=== PATIENT | female | born 1945 | race Caucasian/White ===

== ENCOUNTER → 2016-10-16 | Outpatient (CLI) | payer MEDICARE, OTHER ==
[~2016-10-16] MED LIST: ASPIRIN LO-DOSE81 MG PO; CALCIUM 600 +1 EAC3 PO; LEVOTHROID(SYN75 MCG PO; SIMVASTATIN20 MG PO; THERA-VITE W/ B1 TAB PO; TOPROL XL100 MG PO
--- NOTE | ~2016-10-16 | ENPV ---
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 Bilateral vertebral arteries are antegrade. Procedure Type of Study: Cerebral:Carotid, Carotid Doppler Bilateral. Indications for Study:Carotid Bruit. Appropriate Use Criteria:7 Patient Status:Routine. Study Location:Vascular Lab. Technical Quality:Adequate visualization. Velocities are measured in cm/s ; Diameters are measured in cm Carotid Right Measurements Carotid Left Measurements + +--------+--------+ + + + +--------+ --------+ + + !Location !PSV !EDV !Angle !%Stenosis ! !Location !PSV ! EDV !Angle !%Stenosis ! + +--------+--------+ + + + +--------+ --------+ + + !Prox CCA !77 !14 !60 ! ! !Prox CCA !79 ! 10 !60 ! ! + +--------+--------+ + + + +--------+ --------+ + + !Dist CCA !90 !16 !60 ! ! !Dist CCA !83 ! 17 !60 ! ! + +--------+--------+ + + + +--------+ --------+ + + !Prox ICA !74 !21 !60 !1-39% ! !Prox ICA !82 ! 20 !52 !1-39% ! + +--------+--------+ + + + +--------+ --------+ + + !Dist ICA !63 !19 !34 ! ! !Dist ICA !61 ! 20 !36 ! ! + +--------+--------+ + + + +--------+ --------+ + + !Prox ECA !86 ! !60 ! ! !Prox ECA !69 ! !38 ! ! + +--------+--------+ + + + +--------+ --------+ + + !Vertebral !57 !9 !60 ! ! !Vertebral !27 ! !60 ! ! + +--------+--------+ + + + +--------+ --------+ + + !Subclavian !149 ! ! ! ! !Subclavian !231 ! ! ! ! + +--------+--------+ + + + +--------+ --------+ + + - There is antegrade vertebral flow noted on the right side. - There is antegrade verte bral flow noted on the left side. - Add'l Measurements:ICAPSV/CCAPSV 0.96.ICAEDV/CCAEDV 1.43. - Add'l Measurements:ICAPS V/CCAPSV 1.05.ICAEDV/CCAEDV 1.9. Signature dtt: MOHSEN DAVID dtsarah: 10/16/16 1343 Physician Self Edit
== END | disposition disaster alternative care site (69) ==
LOC: GCAR 13:31
DX: R01.1 Cardiac murmur, unspecified (principal); I65.23 Occlusion and stenosis of bilateral carotid arteries